=== PATIENT | female | born 1950 | race Caucasian/White ===

== ENCOUNTER → 2019-07-12 | Outpatient (CLI) | payer MEDICARE, OTHER ==
[~2019-07-12] MED LIST: ASPI81TA45 PO; CARV12.52 PO; FURO-93 PO; LOSA50TA14 PO; PANT40TA5 PO; SPIR25TA5 PO
[2019-07-12 14:17] LABS: BASOPHILS # (AUTO) 0.05 x10^3/uL (0-0.1); BASOPHILS % (AUTO) 1 % (0-1); EOSINOPHILS # (AUTO) 0.13 x10^3/uL (0-0.4); EOSINOPHILS % (AUTO) 2 % (1-7); LYMPHOCYTES # (AUTO) 1.87 x10^3/uL (1-3.4); LYMPHOCYTES % (AUTO) 26 % (22-44); MD NO; MEAN CORPUSCULAR HEMOGLOBIN 30.8 pg (27.0-34.8); MEAN CORPUSCULAR HGB CONC 33.4 g/dL (32.4-35.8); MEAN CORPUSCULAR VOLUME 92.4 fL (80-100); MEAN PLATELET VOLUME 8.2 fL (7.4-10.4); MONOCYTES # (AUTO) 0.47 x10^3/uL (0.2-0.8); MONOCYTES % (AUTO) 7 % (2-9); NEUTROPHILS # (AUTO) 4.65 x10^3/uL (1.8-6.8); NEUTROPHILS % (AUTO) 65 % (42-75); PLATELET COUNT 281 x10^3/uL (130-400); RED BLOOD COUNT 4.74 x10^6/uL (3.82-5.3); RED CELL DISTRIBUTION WIDTH 12.8 % (9.6-15.2)
[2019-07-12 14:20] LABS: INTERNATIONAL NORMALIZED RATIO 0.99 (0.93-1.1); PROTHROMBIN TIME 10.5 Seconds (9.6-11.5)
[2019-07-12 14:29] LABS: ALBUMIN 3.6 g/dL (3.4-5.0); ANION GAP 8 mmol/L (5-15); CALCIUM 9.4 mg/dL (8.5-10.1); CHLORIDE 110 mmol/L (98-107)
[2019-07-12 14:30] LABS: ALANINE AMINOTRANSFERASE 28 U/L (12-78); CREATININE 0.78 mg/dL (0.55-1.02)
[2019-07-12 14:32] LABS: ALKALINE PHOSPHATASE 94 U/L (45-117); BILIRUBIN,TOTAL 0.5 mg/dL (0.2-1.0); TOTAL PROTEIN 7.5 g/dL (6.4-8.2)
== END | disposition home or self-care (01) ==
LOC: STAR 13:06
PROVIDERS: ATTEND Surgery
DX: Z01.818 Encounter for other preprocedural examination (principal); I44.7 Left bundle-branch block, unspecified
CPT/HCPCS: 36415; 80053; 85025; 85610; 93005

== ENCOUNTER 2019-07-18 09:24 | Day surgery (SDC) | payer MEDICARE, OTHER ==
[~2019-07-18] VITALS: Ht 160 cm; Wt 95.6 kg
[~2019-07-18 09:24] MED LIST changes: +BUPIVACAINE/PF-EPI 0.5% 1:200K ONE; +METHYLENE BLUE 10 MG/ML 10ML ONE
[2019-07-18] MEDS ORDERED: CHLORHEXIDINE 15 ML UDC MM STA (09:36)
[2019-07-18] MEDS ORDERED: LIDOCAINE-MPF 1%, 2ML INFIL STA (09:36)
[2019-07-18] MEDS ORDERED: LACTATED RINGERS 1,000 ML IV ONE (09:36)
[2019-07-18 09:48] VITALS: BP 136/72
[2019-07-18] MEDS ORDERED: SODIUM BICARBONATE 4.2%, 5ML ONE (12:03)
[2019-07-18] MEDS ORDERED: LIDOCAINE 1%-EPI 1:100K, 20ML ONE (12:03)
[2019-07-18] MEDS ORDERED: LIDOCAINE 1%, 20ML ONE (12:03)
[2019-07-18] MEDS ORDERED: SCOPOLAMINE 1MG PATCH TD ONE (12:09)
[2019-07-18] MEDS ORDERED: MIDAZOLAM 1 MG/ML, 2ML ONE (12:12)
[2019-07-18] MEDS ORDERED: PROPOFOL 10 MG/ML, 20ML ONE (12:17)
[2019-07-18] MEDS ORDERED: SUCCINYLCHOLINE 20 MG/ML, 10ML ONE (12:17)
[2019-07-18] MEDS ORDERED: CEFAZOLIN 1,000 MG ONE (12:17)
[2019-07-18] MEDS ORDERED: ROCURONIUM 10 MG/ML,10ML ONE (12:17)
[2019-07-18] MEDS ORDERED: DEXAMETHASONE 4 MG/ML, 1ML ONE (12:17)
[2019-07-18] MEDS ORDERED: ONDANSETRON 2MG/ML, 2ML ONE (12:17)
[2019-07-18] MEDS ORDERED: KETOROLAC 30 MG/1 ML IV PRN (13:00)
[2019-07-18] MEDS ORDERED: OXYcodone 5 MG/5 ML ORAL.SOL UDC PO PRN (13:00)
[2019-07-18] MEDS ORDERED: LABETALOL 5MG/ML, 20ML IV PRN (13:00)
[2019-07-18] MEDS ORDERED: PROMETHAZINE 25 MG/ML, 1ML IV PRN (13:00)
[2019-07-18] MEDS ORDERED: DIAZEPAM 5 MG/ML, 2ML IV PRN ×2 (13:00)
[2019-07-18] MEDS ORDERED: hydrALAzine 20 MG/ML, 1ML IV PRN (13:00)
[2019-07-18] MEDS ORDERED: METOCLOPRAMIDE 5 MG/ML, 2ML IV PRN (13:00)
[2019-07-18] MEDS ORDERED: MEPERIDINE/PF 25MG/0.5ML IVPush PRN (13:00)
[2019-07-18] MEDS ORDERED: FENTANYL PF 100 MCG/2ML IV PRN (13:00)
[2019-07-18] MEDS ORDERED: ONDANSETRON 2MG/ML, 2ML IVPush PRN (13:00)
[2019-07-18] MEDS ORDERED: HYDROmorphone 1 MG/ML, 1ML INJ IV PRN (13:00)
[2019-07-18] MEDS ORDERED: ALBUTEROL SULFATE 2.5 MG/3 ML NPPB PRN (13:00)
== END 2019-07-18 15:40 | disposition home or self-care (01) ==
LOC: OUT 09:24 → EDSTATUS 12:00 → OUT 15:40
PROVIDERS: ATTEND Surgery
DX: C50.311 Malignant neoplasm of lower-inner quadrant of right female breast (principal); I10 Essential (primary) hypertension; I42.8 Other cardiomyopathies; K21.9 Gastro-esophageal reflux disease without esophagitis; E66.9 Obesity, unspecified; Z17.0 Estrogen receptor positive status [ER+]; Z68.37 Body mass index [BMI] 37.0-37.9, adult; Z79.82 Long term (current) use of aspirin; Z79.899 Other long term (current) drug therapy; Z90.49 Acquired absence of other specified parts of digestive tract; Z80.3 Family history of malignant neoplasm of breast; Z83.3 Family history of diabetes mellitus
CPT/HCPCS: 19281; 19301; 38525; 38792; 76098; 77065; 88305; 88307; A9541; J0330; J0690; J1100; J2250; J2405; J2704; J3490; J7120; Q9968